=== PATIENT | male | born 1950 | race African-American/Black ===

== ENCOUNTER 2023-12-31 12:24 | Emergency (ER) | payer MEDICARE, MEDICAID ==
[~2023-12-31] VITALS: Ht 170.2 cm; Wt 86.2 kg
[2023-12-31 12:45] VITALS: BP 126/82; PULSE 82; RESP 16; TEMP 98.3; O2SAT 97
[2023-12-31 13:32] LABS: CLARITY URINE CLEAR (CLEAR); COLOR URINE YELLOW (YELLOW); GLUCOSE URINE NEGATIVE (NEGATIVE); KETONES URINE NEGATIVE (NEGATIVE); LEUKOCYTE ESTERASE URINE 2+ (NEGATIVE); NITRITE URINE POSITIVE (NEGATIVE); OCCULT BLOOD URINE NEGATIVE (NEGATIVE); PH URINE 5.5 (4.5-8.0); PROTEIN URINE NEGATIVE (NEGATIVE)
[2023-12-31 13:45] LABS: MUCUS URINE 2+ /lpf (NONE/TRACE); SQUAMOUS EPITHELIAL CELL URINE 2+ /lpf (RARE/1+)
[2023-12-31 13:47] LABS: WBC URINE 25-50 /hpf (0-2)
[2023-12-31 13:48] LABS: BACTERIA URINE 4+; RBC URINE NONE SEEN /hpf (0-2)
[2023-12-31] MEDS ORDERED: CEFP200T14 MT (15:31)
[2024-01-03 04:08] LABS: CHLAMYDIA TRACHOMATIS NAA Negative (Negative); NEISSERIA GONORRHOEAE NAA Negative (Negative)
== END 2023-12-31 16:48 | disposition home or self-care (01) ==
LOC: ER 12:32
DX: N43.3 Hydrocele, unspecified (principal); E11.9 Type 2 diabetes mellitus without complications; I10 Essential (primary) hypertension; N39.0 Urinary tract infection, site not specified
CPT/HCPCS: 76870; 81003; 87077; 87186; 87491; 87591; 93976; 99284

== ENCOUNTER 2024-02-19 10:38 | Emergency (ER) | payer OTHER, MEDICAID ==
[~2024-02-19] VITALS: Ht 172.7 cm; Wt 83.9 kg
[~2024-02-19 10:38] MED LIST: CEFP200T14 MT
[2024-02-19 10:55] VITALS: BP 129/85; PULSE 73; RESP 16; TEMP 98.2; O2SAT 97
[2024-02-19 16:08] LABS: CLARITY URINE CLEAR (CLEAR); COLOR URINE YELLOW (YELLOW); GLUCOSE URINE NEGATIVE (NEGATIVE); KETONES URINE NEGATIVE (NEGATIVE); LEUKOCYTE ESTERASE URINE NEGATIVE (NEGATIVE); NITRITE URINE NEGATIVE (NEGATIVE); OCCULT BLOOD URINE NEGATIVE (NEGATIVE); PH URINE 5.5 (4.5-8.0); PROTEIN URINE NEGATIVE (NEGATIVE); SPECIFIC GRAVITY URINE 1.028 (1.005-1.030); UROBILINOGEN URINE 0.2 E.U./dL (0.2-1.0)
== END 2024-02-19 17:10 | disposition home or self-care (01) ==
LOC: ER 12:12
DX: N43.3 Hydrocele, unspecified (principal); E11.9 Type 2 diabetes mellitus without complications; I10 Essential (primary) hypertension
CPT/HCPCS: 81003; 99283

== ENCOUNTER 2024-04-03 18:03 | Emergency (ER) | payer MEDICAID, OTHER ==
[~2024-04-03] VITALS: Ht 172.7 cm; Wt 86.2 kg
[2024-04-03 18:06] VITALS: O2SAT 96
[2024-04-03] MEDS: SODIUM CHLORIDE 0.9% 1,000 ML IV ONE (18:58)
[2024-04-03 19:02] LABS: BASOPHILS % 0.9 % (0.0-2.0); EOSINOPHILS % 1.7 % (0.0-5.0); HEMATOCRIT. 47.3 % (42.0-52.0); HEMOGLOBIN. 15.7 g/dL (14.0-18.0); LYMPHOCYTES % 34.9 % (20.0-50.0); MEAN CORPUSCULAR HGB CONC 33.1 g/dL (31.0-37.0); MEAN CORPUSCULAR VOLUME 90.5 fL (80.0-94.0); MEAN PLATELET VOLUME 8.5 fl (7.4-10.4); MONOCYTES % 6.4 % (2.0-8.0); NEUTROPHILS % 56.1 % (40.0-76.0); PLATELET 252 x1000/uL (130-400); RED BLOOD CELL COUNT 5.22 mill/uL (4.7-6.1); RED CELL DISTRIBUTION WIDTH 17.8 % (11.6-14.6); WHITE BLOOD COUNT 8.1 x1000/uL (4.5-11.0)
[2024-04-03 19:08] LABS: CLARITY URINE CLEAR (CLEAR); COLOR URINE YELLOW (YELLOW); GLUCOSE URINE NEGATIVE (NEGATIVE); KETONES URINE NEGATIVE (NEGATIVE); LEUKOCYTE ESTERASE URINE NEGATIVE (NEGATIVE); NITRITE URINE NEGATIVE (NEGATIVE); OCCULT BLOOD URINE NEGATIVE (NEGATIVE); PROTEIN URINE NEGATIVE (NEGATIVE); SPECIFIC GRAVITY URINE 1.023 (1.005-1.030); UROBILINOGEN URINE 0.2 E.U./dL (0.2-1.0)
[2024-04-03 19:12] LABS: CHLORIDE 106 mEq/L (98-107); POTASSIUM 3.7 mEq/L (3.5-5.1); SODIUM 142 mEq/L (136-145)
[2024-04-03 19:13] LABS: CARBON DIOXIDE 30 mEq/L (21-32)
[2024-04-03 19:14] LABS: CALCIUM 9.8 mg/dL (8.7-10.4)
[2024-04-03 19:18] LABS: CREATININE 1.2 mg/dL (0.6-1.3); GLUCOSE 150 mg/dL (70-105); UREA NITROGEN BLOOD 18 mg/dL (9-23)
[2024-04-03 19:20] LABS: ALANINE AMINOTRANSFERASE 21 IU/L (10-49); ALBUMIN 4.4 g/dL (3.2-4.8); ASPARTATE AMINOTRANSFERASE 25 IU/L (<34)
[2024-04-03 19:21] LABS: BILIRUBIN TOTAL 0.3 mg/dL (0.1-1.0); PROTEIN TOTAL 7.2 g/dL (6.0-8.3)
[2024-04-03 19:23] LABS: BILIRUBIN DIRECT < 0.1 mg/dL (<=3.0); TROPONIN I HIGH SENSITIVITY < 4 ng/L (3.0-53)
[2024-04-03 20:15] VITALS: BP 127/86; PULSE 77; RESP 16; TEMP 36.66960; O2SAT 100
== END 2024-04-03 20:20 | disposition home or self-care (01) ==
LOC: ER 18:03
DX: R53.1 Weakness (principal); E11.9 Type 2 diabetes mellitus without complications; I25.10 Atherosclerotic heart disease of native coronary artery without angina pectoris; Z95.5 Presence of coronary angioplasty implant and graft
CPT/HCPCS: 80076; 80048; 81003; 85025; 87086; 84484; 36415; 71045; 93005; 96360; 99285; J7030; Z7610

== ENCOUNTER 2025-05-29 16:09 | Emergency (ER) | payer OTHER ==
[~2025-05-29] VITALS: Ht 172.7 cm; Wt 82.0 kg
[2025-05-29 16:14] VITALS: O2SAT 96
[2025-05-29 17:01] LABS: BASOPHILS % 0.8 % (0.0-2.0); EOSINOPHILS % 1.6 % (0.0-5.0); HEMATOCRIT. 41.2 % (42.0-52.0); HEMOGLOBIN. 13.7 g/dL (14.0-18.0); LYMPHOCYTES % 25.0 % (20.0-50.0); MEAN PLATELET VOLUME 8.9 fl (7.4-10.4); MONOCYTES % 5.3 % (2.0-8.0); NEUTROPHILS % 67.3 % (40.0-76.0); PLATELET 212 x1000/uL (130-400); RED BLOOD CELL COUNT 4.66 mill/uL (4.7-6.1); RED CELL DISTRIBUTION WIDTH 17.5 % (11.6-14.6)
[2025-05-29 17:13] LABS: CREATININE 1.1 mg/dL (0.6-1.3)
[2025-05-29 17:14] LABS: TROPONIN I HIGH SENSITIVITY < 4 ng/L (3.0-53); UREA NITROGEN BLOOD 11 mg/dL (9-23)
[2025-05-29 17:15] LABS: PROTEIN TOTAL 6.4 g/dL (6.0-8.3)
[2025-05-29 17:16] LABS: ASPARTATE AMINOTRANSFERASE 23 IU/L (<34); BILIRUBIN DIRECT 0.1 mg/dL (<=3.0); BILIRUBIN TOTAL 0.4 mg/dL (0.1-1.0)
[2025-05-29] MEDS: POTASSIUM CHLORIDE 20MEQ TABLET SR PO ONE (18:48)
[2025-05-29 23:30] VITALS: BP 117/82; PULSE 72; RESP 13; TEMP 36.6; O2SAT 96
== END 2025-05-29 23:30 | disposition home or self-care (01) ==
LOC: ER 16:09
DX: E87.6 Hypokalemia (principal); R53.1 Weakness; R06.02 Shortness of breath; E11.9 Type 2 diabetes mellitus without complications; I11.9 Hypertensive heart disease without heart failure; M19.90 Unspecified osteoarthritis, unspecified site; Z79.01 Long term (current) use of anticoagulants
CPT/HCPCS: 36415; 71045; 80048; 80076; 83735; 83880; 84484; 85025; 93005; 99285; A4606